=== PATIENT | male | born 1965 | race Hispanic/Latino ===

== ENCOUNTER 2018-06-10 13:00 | Inpatient (IN) | payer BC ==
[~2018-06-10] VITALS: Ht 167.6 cm; Wt 52.0 kg
[2018-06-10] VITALS (10 sets, daily range): BP systolic 98–151; BP diastolic 62–92
[2018-06-10 13:32] LABS: HEMATOCRIT 36.2 % (39.0-50.0); HEMOGLOBIN 12.9 g/dl (14.0-18.0); IMMATURE GRANULOCYTES 0.4 % (0.0-5.0); MEAN CELL VOLUME 84.6 fL CALC (80.0-100.0); MEAN CORPUSCULAR HGB 30.1 pG CALC (26.0-32.0); MEAN CORPUSCULAR HGB CONC 35.6 g/L CALC (32.0-36.0); NEUT# 9.15 thou/uL (1.82-7.42); RED BLOOD COUNT 4.28 mill/uL (4.70-6.10); RED CELL DISTRI WIDTH 11.9 % (11.5-15.5)
[2018-06-10 13:41] LABS: URINE BLOOD DIPSTICK SMALL (NEGATIVE); URINE COLOR YELLOW; URINE GLUCOSE - DIPSTICK >=1000 mg/dL (NEGATIVE); URINE KETONE 40 mg/dL (NEGATIVE); URINE LEUK ESTERASE NEGATIVE (NEGATIVE); URINE NITRITE - DIPSTICK NEGATIVE (Negative); URINE PH 5.5 (4.5-8.0); URINE PROTEIN - DIPSTICK 100 mg/dL (NEG-TRACE); URINE SPECIFIC GRAVITY 1.025; URINE UROBILINOGEN - DIPSTICK 0.2 E.U./dL (0.2)
[2018-06-10 13:48] LABS: ALBUMIN 3.7 g/dL (3.2-5.0); ALKALINE PHOSPHATASE 99 u/l (38-126); ANION GAP 26 (6-22 (CALC)); BILIRUBIN, TOTAL 0.8 mg/dL (0.0-1.4); BUN 25 mg/dL (9-20); BUN/CREATININE RATIO 26 (12-20 (CALC)); CARBON DIOXIDE 18 mmol/l (22-30); CHLORIDE 96 mmol/l (95-108); GFR > 60 ML/MIN (>=60 (CALC)); GFR FOR AFR.AMER. > 60 ML/MIN (>=60 (CALC)); LIPASE 15 u/l (23-300); POTASSIUM 4.7 mmol/l (3.5-5.1); SGOT/AST 23 u/l (17-59); SODIUM 134 mmol/l (137-146); TOTAL PROTEIN 6.8 g/dL (6.3-8.2)
[2018-06-10 13:52] LABS: URINE BILIRUBIN - DIPSTICK NEGATIVE (NEGATIVE); URINE CLARITY CLEAR; URINE WBC 0-2 WBC/hpf (0-5)
[2018-06-10 19:31] LABS: ANION GAP 13 (6-22 (CALC)); BUN 21 mg/dL (9-20); BUN/CREATININE RATIO 29 (12-20 (CALC)); CHLORIDE 104 mmol/l (95-108); CREATININE 0.7 mg/dL (0.7-1.3); GFR > 60 ML/MIN (>=60 (CALC)); GFR FOR AFR.AMER. > 60 ML/MIN (>=60 (CALC)); SODIUM 138 mmol/l (137-146)
[2018-06-10 19:32] LABS: CARBON DIOXIDE 25 mmol/l (22-30)
[2018-06-11] VITALS (12 sets, daily range): BP systolic 87–139; BP diastolic 53–89
[2018-06-11 06:02] LABS: HEMATOCRIT 33.8 % (39.0-50.0); HEMOGLOBIN 11.8 g/dl (14.0-18.0); IMMATURE GRANULOCYTES 0.1 % (0.0-5.0); MEAN CELL VOLUME 86.4 fL CALC (80.0-100.0); MEAN CORPUSCULAR HGB 30.2 pG CALC (26.0-32.0); MEAN CORPUSCULAR HGB CONC 34.9 g/L CALC (32.0-36.0); PLATELET COUNT 129 thou/uL (130-400); RED BLOOD COUNT 3.91 mill/uL (4.70-6.10); RED CELL DISTRI WIDTH 11.9 % (11.5-15.5)
[2018-06-11 06:17] LABS: ALKALINE PHOSPHATASE 76 u/l (38-126); BILIRUBIN, TOTAL 0.5 mg/dL (0.0-1.4); BUN 24 mg/dL (9-20); BUN/CREATININE RATIO 30 (12-20 (CALC)); CHLORIDE 105 mmol/l (95-108); CREATININE 0.8 mg/dL (0.7-1.3); GFR > 60 ML/MIN (>=60 (CALC)); GFR FOR AFR.AMER. > 60 ML/MIN (>=60 (CALC)); MAGNESIUM 1.9 mg/dL (1.6-2.3); POTASSIUM 4.4 mmol/l (3.5-5.1); SGOT/AST 15 u/l (17-59); SODIUM 137 mmol/l (137-146)
[2018-06-11 06:19] LABS: ANION GAP 23 (6-22 (CALC))
[2018-06-11 06:20] LABS: ALBUMIN 2.6 g/dL (3.2-5.0); CARBON DIOXIDE 13 mmol/l (22-30)
[2018-06-11 06:47] LABS: MANUAL DIFFERENTIAL YES
[2018-06-11 06:48] LABS: BAND 31 % (0-8); HYPOCHROMIA FEW; MICROCYTOSIS FEW
[2018-06-11 06:49] LABS: PLATELET ESTIMATE NORMAL
[2018-06-12 04:47] VITALS: BP 127/73
[2018-06-12 05:18] LABS: HEMOGLOBIN 11.8 g/dl (14.0-18.0); IMMATURE GRANULOCYTES 0.4 % (0.0-5.0); MEAN CELL VOLUME 85.9 fL CALC (80.0-100.0); MEAN CORPUSCULAR HGB 29.8 pG CALC (26.0-32.0); MEAN CORPUSCULAR HGB CONC 34.7 g/L CALC (32.0-36.0); NEUT# 6.16 thou/uL (1.82-7.42); RED BLOOD COUNT 3.96 mill/uL (4.70-6.10); RED CELL DISTRI WIDTH 11.7 % (11.5-15.5)
[2018-06-12 05:34] LABS: ALBUMIN 2.4 g/dL (3.2-5.0); ALKALINE PHOSPHATASE 82 u/l (38-126); ANION GAP 17 (6-22 (CALC)); BILIRUBIN, TOTAL 0.5 mg/dL (0.0-1.4); BUN 17 mg/dL (9-20); BUN/CREATININE RATIO 32 (12-20 (CALC)); CHLORIDE 100 mmol/l (95-108); CREATININE 0.5 mg/dL (0.7-1.3); GFR > 60 ML/MIN (>=60 (CALC)); GFR FOR AFR.AMER. > 60 ML/MIN (>=60 (CALC)); MAGNESIUM 1.8 mg/dL (1.6-2.3); POTASSIUM 3.8 mmol/l (3.5-5.1); SGOT/AST 19 u/l (17-59); SODIUM 135 mmol/l (137-146); TOTAL PROTEIN 4.7 g/dL (6.3-8.2)
[2018-06-12 05:40] LABS: CARBON DIOXIDE 22 mmol/l (22-30)
[2018-06-12 07:44] VITALS: BP 137/87
[2018-06-12 11:35] VITALS: BP 144/91
[2018-06-12 15:44] VITALS: BP 145/88
[2018-06-12 20:06] VITALS: BP 117/62
[2018-06-13 04:47] VITALS: BP 139/78
[2018-06-13 06:44] LABS: ALBUMIN 2.4 g/dL (3.2-5.0); BUN 17 mg/dL (9-20); CARBON DIOXIDE 18 mmol/l (22-30); CHLORIDE 100 mmol/l (95-108); CREATININE 0.6 mg/dL (0.7-1.3); GFR > 60 ML/MIN (>=60 (CALC)); GFR FOR AFR.AMER. > 60 ML/MIN (>=60 (CALC)); POTASSIUM 4.1 mmol/l (3.5-5.1); SODIUM 135 mmol/l (137-146)
[2018-06-13 07:39] VITALS: BP 117/66
[2018-06-13 15:20] VITALS: BP 132/75
[2018-06-13 20:00] VITALS: BP 118/70
[2018-06-14 00:28] VITALS: BP 123/63
[2018-06-14 05:03] VITALS: BP 139/75
[2018-06-14 07:45] VITALS: BP 170/99
[2018-06-14 13:42] LABS: HEMATOCRIT 32.6 % (39.0-50.0); HEMOGLOBIN 11.8 g/dl (14.0-18.0); IMMATURE GRANULOCYTES 0.7 % (0.0-5.0); MEAN CELL VOLUME 83.4 fL CALC (80.0-100.0); MEAN CORPUSCULAR HGB 30.2 pG CALC (26.0-32.0); MEAN CORPUSCULAR HGB CONC 36.2 g/L CALC (32.0-36.0); NEUT# 9.12 thou/uL (1.82-7.42); RED BLOOD COUNT 3.91 mill/uL (4.70-6.10); RED CELL DISTRI WIDTH 11.9 % (11.5-15.5)
[2018-06-14 15:30] VITALS: BP 151/84
[2018-06-14 20:00] VITALS: BP 149/83
[2018-06-15 05:26] VITALS: BP 160/90
[2018-06-15 07:30] VITALS: BP 121/72
[2018-06-15 16:58] VITALS: BP 136/80
[2018-06-15 20:00] VITALS: BP 148/82
[2018-06-16 05:39] VITALS: BP 150/86
[2018-06-16 06:10] LABS: HEMATOCRIT 35.6 % (39.0-50.0); HEMOGLOBIN 12.8 g/dl (14.0-18.0); IMMATURE GRANULOCYTES 0.8 % (0.0-5.0); MEAN CELL VOLUME 83.6 fL CALC (80.0-100.0); RED BLOOD COUNT 4.26 mill/uL (4.70-6.10); RED CELL DISTRI WIDTH 11.8 % (11.5-15.5)
[2018-06-16 06:14] LABS: ALBUMIN 2.5 g/dL (3.2-5.0); ALKALINE PHOSPHATASE 120 u/l (38-126); BILIRUBIN, TOTAL 0.5 mg/dL (0.0-1.4); BUN 16 mg/dL (9-20); BUN/CREATININE RATIO 29 (12-20 (CALC)); CHLORIDE 97 mmol/l (95-108); CREATININE 0.6 mg/dL (0.7-1.3); GFR > 60 ML/MIN (>=60 (CALC)); GFR FOR AFR.AMER. > 60 ML/MIN (>=60 (CALC)); MAGNESIUM 2.2 mg/dL (1.6-2.3); POTASSIUM 3.8 mmol/l (3.5-5.1); SODIUM 136 mmol/l (137-146); TOTAL PROTEIN 5.2 g/dL (6.3-8.2)
[2018-06-16 06:21] LABS: ANION GAP 17 (6-22 (CALC)); CARBON DIOXIDE 26 mmol/l (22-30); SGOT/AST 45 u/l (17-59)
[2018-06-16 06:57] LABS: MANUAL DIFFERENTIAL YES; PLATELET COUNT 262 thou/uL (130-400)
[2018-06-16 08:15] VITALS: BP 127/82
[2018-06-16 11:05] VITALS: BP 125/70
[2018-06-16] MEDS ORDERED: DOXYCYCL HYC100 MG PO (13:35)
[2018-06-16] MEDS ORDERED: AMARYL2 MG PO (13:37)
[2018-06-16] MEDS ORDERED: LISINOPRIL10 MG PO (13:37)
[2018-06-16] MEDS ORDERED: JANUVIA50 MG PO (13:38)
== END 2018-06-16 15:15 | disposition home or self-care (01) | DRG 193 ==
LOC: ED 13:00 → ED-I 14:54 → ED 15:28 → ICU 15:29 → MS2 06-11 18:12
PROVIDERS: Family Medicine; Internal Medicine Nephrology; ADMIT Internal Medicine Nephrology; ATTEND Internal Medicine Nephrology
DX: J10.1 Influenza due to other identified influenza virus with other respiratory manifestations (principal); E11.10 Type 2 diabetes mellitus with ketoacidosis without coma; E87.1 Hypo-osmolality and hyponatremia; E11.40 Type 2 diabetes mellitus with diabetic neuropathy, unspecified; E11.22 Type 2 diabetes mellitus with diabetic chronic kidney disease; I12.9 Hypertensive chronic kidney disease with stage 1 through stage 4 chronic kidney disease, or unspecified chronic kidney disease; N18.1 Chronic kidney disease, stage 1; D63.1 Anemia in chronic kidney disease; S80.862A Insect bite (nonvenomous), left lower leg, initial encounter; S80.861A Insect bite (nonvenomous), right lower leg, initial encounter; W57.XXXA Bitten or stung by nonvenomous insect and other nonvenomous arthropods, initial encounter; Z79.84 Long term (current) use of oral hypoglycemic drugs
CPT/HCPCS: J1650

== ENCOUNTER 2018-06-20 07:10 | Inpatient (IN) | payer BC ==
[2018-06-20] VITALS (10 sets, daily range): BP systolic 91–132; BP diastolic 49–82
[~2018-06-20] VITALS: Ht 167.6 cm; Wt 52.0 kg
[~2018-06-20 07:10] MED LIST: AMARYL2 MG PO; DOXYCYCL HYC100 MG PO; JANUVIA50 MG PO; LISINOPRIL10 MG PO
[2018-06-20 07:55] LABS: HEMATOCRIT 37.1 % (39.0-50.0); HEMOGLOBIN 12.9 g/dl (14.0-18.0); IMMATURE GRANULOCYTES 1.1 % (0.0-5.0); MEAN CELL VOLUME 85.7 fL CALC (80.0-100.0); MEAN CORPUSCULAR HGB 29.8 pG CALC (26.0-32.0); MEAN CORPUSCULAR HGB CONC 34.8 g/L CALC (32.0-36.0); RED BLOOD COUNT 4.33 mill/uL (4.70-6.10); RED CELL DISTRI WIDTH 12.1 % (11.5-15.5)
[2018-06-20 08:14] LABS: ALBUMIN 2.8 g/dL (3.2-5.0); ALKALINE PHOSPHATASE 154 u/l (38-126); BILIRUBIN, TOTAL 0.3 mg/dL (0.0-1.4); BUN 15 mg/dL (9-20); BUN/CREATININE RATIO 20 (12-20 (CALC)); CHLORIDE 107 mmol/l (95-108); CREATININE 0.7 mg/dL (0.7-1.3); GFR > 60 ML/MIN (>=60 (CALC)); GFR FOR AFR.AMER. > 60 ML/MIN (>=60 (CALC)); POTASSIUM 3.6 mmol/l (3.5-5.1); SGOT/AST 15 u/l (17-59); SODIUM 140 mmol/l (137-146)
[2018-06-20 08:16] LABS: ANION GAP 26 (6-22 (CALC)); CARBON DIOXIDE 11 mmol/l (22-30); TOTAL PROTEIN 6.5 g/dL (6.3-8.2)
[2018-06-21] VITALS (13 sets, daily range): BP systolic 94–148; BP diastolic 53–92
[2018-06-21 05:35] LABS: IMMATURE GRANULOCYTES 1.1 % (0.0-5.0); MEAN CELL VOLUME 81.8 fL CALC (80.0-100.0); MEAN CORPUSCULAR HGB 29.8 pG CALC (26.0-32.0); MEAN CORPUSCULAR HGB CONC 36.5 g/L CALC (32.0-36.0); NEUT# 14.4 thou/uL (1.82-7.42); RED BLOOD COUNT 3.52 mill/uL (4.70-6.10); RED CELL DISTRI WIDTH 11.9 % (11.5-15.5)
[2018-06-21 05:45] LABS: HEMATOCRIT 28.8 % (39.0-50.0); HEMOGLOBIN 10.5 g/dl (14.0-18.0)
[2018-06-21 05:48] LABS: ALKALINE PHOSPHATASE 113 u/l (38-126); BILIRUBIN, TOTAL 0.3 mg/dL (0.0-1.4); BUN 9 mg/dL (9-20); BUN/CREATININE RATIO 19 (12-20 (CALC)); CHLORIDE 111 mmol/l (95-108); CREATININE 0.5 mg/dL (0.7-1.3); GFR > 60 ML/MIN (>=60 (CALC)); GFR FOR AFR.AMER. > 60 ML/MIN (>=60 (CALC)); MAGNESIUM 1.7 mg/dL (1.6-2.3); SGOT/AST 11 u/l (17-59); SODIUM 140 mmol/l (137-146)
[2018-06-21 05:49] LABS: ALBUMIN 1.9 g/dL (3.2-5.0); ANION GAP 17 (6-22 (CALC)); CARBON DIOXIDE 15 mmol/l (22-30); POTASSIUM 2.7 mmol/l (3.5-5.1); TOTAL PROTEIN 4.5 g/dL (6.3-8.2)
[2018-06-21 10:30] LABS: URINE BILIRUBIN - DIPSTICK NEGATIVE (NEGATIVE); URINE BLOOD DIPSTICK TRACE-LYSED (NEGATIVE); URINE COLOR YELLOW; URINE GLUCOSE - DIPSTICK 500 mg/dL (NEGATIVE); URINE KETONE >=80 mg/dL (NEGATIVE); URINE LEUK ESTERASE NEGATIVE (Negative); URINE NITRITE - DIPSTICK NEGATIVE (Negative); URINE PROTEIN - DIPSTICK 100 mg/dL (NEG-TRACE); URINE SPECIFIC GRAVITY >=1.030; URINE UROBILINOGEN - DIPSTICK 0.2 E.U./dL (0.2)
[2018-06-21 10:37] LABS: URINE CLARITY SL CLOUDY; URINE EPITHELIAL CELLS FEW EPI/hpf (0-FEW); URINE MUCUS MODERATE hpf (NONE-FEW); URINE RBC 0-2 RBC/hpf (0-5)
[2018-06-22] VITALS (11 sets, daily range): BP systolic 109–160; BP diastolic 67–92
[2018-06-22 05:49] LABS: HEMOGLOBIN 11.3 g/dl (14.0-18.0); MEAN CELL VOLUME 81.4 fL CALC (80.0-100.0); MEAN CORPUSCULAR HGB 29.7 pG CALC (26.0-32.0); MEAN CORPUSCULAR HGB CONC 36.5 g/L CALC (32.0-36.0); NEUT# 13.03 thou/uL (1.82-7.42); RED BLOOD COUNT 3.81 mill/uL (4.70-6.10); RED CELL DISTRI WIDTH 12.1 % (11.5-15.5)
[2018-06-22 05:51] LABS: ALBUMIN 2.1 g/dL (3.2-5.0); ALKALINE PHOSPHATASE 122 u/l (38-126); ANION GAP 20 (6-22 (CALC)); BILIRUBIN, TOTAL 0.3 mg/dL (0.0-1.4); BUN 11 mg/dL (9-20); BUN/CREATININE RATIO 22 (12-20 (CALC)); CARBON DIOXIDE 16 mmol/l (22-30); CHLORIDE 110 mmol/l (95-108); CREATININE 0.5 mg/dL (0.7-1.3); GFR > 60 ML/MIN (>=60 (CALC)); GFR FOR AFR.AMER. > 60 ML/MIN (>=60 (CALC)); MAGNESIUM 1.9 mg/dL (1.6-2.3); POTASSIUM 2.9 mmol/l (3.5-5.1); SGOT/AST 11 u/l (17-59); SODIUM 143 mmol/l (137-146); TOTAL PROTEIN 4.7 g/dL (6.3-8.2)
[2018-06-23] VITALS (10 sets, daily range): BP systolic 117–153; BP diastolic 70–91
[2018-06-23 05:35] LABS: HEMATOCRIT 27.7 % (39.0-50.0); HEMOGLOBIN 10.3 g/dl (14.0-18.0); IMMATURE GRANULOCYTES 0.9 % (0.0-5.0); MEAN CELL VOLUME 80.3 fL CALC (80.0-100.0); MEAN CORPUSCULAR HGB 29.9 pG CALC (26.0-32.0); MEAN CORPUSCULAR HGB CONC 37.2 g/L CALC (32.0-36.0); NEUT# 13.62 thou/uL (1.82-7.42); RED BLOOD COUNT 3.45 mill/uL (4.70-6.10); RED CELL DISTRI WIDTH 12.3 % (11.5-15.5)
[2018-06-23 05:58] LABS: ALKALINE PHOSPHATASE 115 u/l (38-126); ANION GAP 16 (6-22 (CALC)); BILIRUBIN, TOTAL 0.3 mg/dL (0.0-1.4); BUN 12 mg/dL (9-20); BUN/CREATININE RATIO 27 (12-20 (CALC)); CARBON DIOXIDE 18 mmol/l (22-30); CHLORIDE 106 mmol/l (95-108); CREATININE 0.4 mg/dL (0.7-1.3); GFR > 60 ML/MIN (>=60 (CALC)); GFR FOR AFR.AMER. > 60 ML/MIN (>=60 (CALC)); MAGNESIUM 1.8 mg/dL (1.6-2.3); POTASSIUM 2.9 mmol/l (3.5-5.1); SGOT/AST 10 u/l (17-59); SODIUM 138 mmol/l (137-146); TOTAL PROTEIN 4.4 g/dL (6.3-8.2)
[2018-06-24 04:10] VITALS: BP 113/73
[2018-06-24 06:01] LABS: HEMATOCRIT 28.2 % (39.0-50.0); HEMOGLOBIN 10.5 g/dl (14.0-18.0); IMMATURE GRANULOCYTES 1.3 % (0.0-5.0); MEAN CELL VOLUME 80.8 fL CALC (80.0-100.0); MEAN CORPUSCULAR HGB 30.1 pG CALC (26.0-32.0); MEAN CORPUSCULAR HGB CONC 37.2 g/L CALC (32.0-36.0); NEUT# 13.25 thou/uL (1.82-7.42); RED BLOOD COUNT 3.49 mill/uL (4.70-6.10); RED CELL DISTRI WIDTH 12.5 % (11.5-15.5)
[2018-06-24 06:13] LABS: ALKALINE PHOSPHATASE 131 u/l (38-126); ANION GAP 14 (6-22 (CALC)); BILIRUBIN, TOTAL 0.5 mg/dL (0.0-1.4); BUN 14 mg/dL (9-20); BUN/CREATININE RATIO 29 (12-20 (CALC)); CARBON DIOXIDE 23 mmol/l (22-30); CHLORIDE 104 mmol/l (95-108); CREATININE 0.5 mg/dL (0.7-1.3); GFR > 60 ML/MIN (>=60 (CALC)); GFR FOR AFR.AMER. > 60 ML/MIN (>=60 (CALC)); MAGNESIUM 1.8 mg/dL (1.6-2.3); POTASSIUM 3.2 mmol/l (3.5-5.1); SODIUM 138 mmol/l (137-146); TOTAL PROTEIN 4.5 g/dL (6.3-8.2)
[2018-06-24 06:25] LABS: SGOT/AST 18 u/l (17-59)
[2018-06-24 08:00] VITALS: BP 93/70
[2018-06-24 15:31] VITALS: BP 145/87
[2018-06-24 18:48] VITALS: BP 137/85
[2018-06-25 04:21] VITALS: BP 121/69
[2018-06-25 05:43] LABS: ALBUMIN 1.7 g/dL (3.2-5.0); BUN 11 mg/dL (9-20); CHLORIDE 104 mmol/l (95-108); CREATININE 0.3 mg/dL (0.7-1.3); GFR > 60 ML/MIN (>=60 (CALC)); GFR FOR AFR.AMER. > 60 ML/MIN (>=60 (CALC)); MAGNESIUM 1.5 mg/dL (1.6-2.3); POTASSIUM 2.7 mmol/l (3.5-5.1); SODIUM 137 mmol/l (137-146)
[2018-06-25 05:46] LABS: CARBON DIOXIDE 30 mmol/l (22-30)
[2018-06-25 07:31] VITALS: BP 121/72
[2018-06-25 16:00] VITALS: BP 124/81
[2018-06-25 19:36] VITALS: BP 112/59
[2018-06-26 04:00] VITALS: BP 127/81
[2018-06-26 06:48] LABS: ANION GAP 13 (6-22 (CALC)); BUN 13 mg/dL (9-20); BUN/CREATININE RATIO 32 (12-20 (CALC)); CARBON DIOXIDE 31 mmol/l (22-30); CHLORIDE 98 mmol/l (95-108); CREATININE 0.4 mg/dL (0.7-1.3); GFR > 60 ML/MIN (>=60 (CALC)); GFR FOR AFR.AMER. > 60 ML/MIN (>=60 (CALC)); POTASSIUM 3.2 mmol/l (3.5-5.1); SODIUM 138 mmol/l (137-146)
[2018-06-26 07:39] VITALS: BP 92/65
[2018-06-26 16:00] VITALS: BP 109/72
[2018-06-26 19:34] VITALS: BP 154/91
[2018-06-27 04:00] VITALS: BP 125/77
[2018-06-27 07:01] VITALS: BP 111/71
[2018-06-27 15:15] VITALS: BP 117/79
[2018-06-27 19:00] VITALS: BP 135/82
[2018-06-28 03:40] VITALS: BP 116/72
[2018-06-28 07:00] VITALS: BP 116/70
[2018-06-28 10:27] LABS: HEMATOCRIT 30.7 % (39.0-50.0); HEMOGLOBIN 10.8 g/dl (14.0-18.0); IMMATURE GRANULOCYTES 0.7 % (0.0-5.0); MEAN CELL VOLUME 84.8 fL CALC (80.0-100.0); MEAN CORPUSCULAR HGB 29.8 pG CALC (26.0-32.0); MEAN CORPUSCULAR HGB CONC 35.2 g/L CALC (32.0-36.0); NEUT# 9.23 thou/uL (1.82-7.42); RED BLOOD COUNT 3.62 mill/uL (4.70-6.10); RED CELL DISTRI WIDTH 12.5 % (11.5-15.5)
[2018-06-28 10:35] LABS: BUN 17 mg/dL (9-20); BUN/CREATININE RATIO 44 (12-20 (CALC)); CARBON DIOXIDE 30 mmol/l (22-30); CHLORIDE 99 mmol/l (95-108); CREATININE 0.4 mg/dL (0.7-1.3); GFR > 60 ML/MIN (>=60 (CALC)); GFR FOR AFR.AMER. > 60 ML/MIN (>=60 (CALC)); SODIUM 135 mmol/l (137-146)
[2018-06-28 10:37] LABS: ANION GAP 10 (6-22 (CALC)); POTASSIUM 4.1 mmol/l (3.5-5.1)
[2018-06-28 15:00] VITALS: BP 125/83
[2018-06-28 19:10] VITALS: BP 117/78
== END 2018-06-28 22:35 | disposition short-term general hospital (02) | DRG 871 ==
LOC: ED 07:10 → ED-I 08:52 → ED 09:40 → ICU 09:41 → MS2 09:41 → ICU 12:00 → MS2 06-23 15:52
PROVIDERS: Emergency Medicine; Internal Medicine; Internal Medicine Nephrology; ADMIT Internal Medicine Nephrology; ATTEND Internal Medicine Nephrology
PROC: 02HV33Z Insertion of Infusion Device into Superior Vena Cava, Percutaneous Approach (ICD-10-PCS; principal; 2018-06-21)
PROC: B518ZZA Fluoroscopy of Superior Vena Cava, Guidance (ICD-10-PCS; 2018-06-21)
DX: A41.9 Sepsis, unspecified organism (principal); J18.9 Pneumonia, unspecified organism; E87.2 Acidosis; R65.20 Severe sepsis without septic shock; R68.0 Hypothermia, not associated with low environmental temperature; E11.65 Type 2 diabetes mellitus with hyperglycemia; E11.22 Type 2 diabetes mellitus with diabetic chronic kidney disease; E87.6 Hypokalemia; I12.9 Hypertensive chronic kidney disease with stage 1 through stage 4 chronic kidney disease, or unspecified chronic kidney disease; N18.1 Chronic kidney disease, stage 1; D63.1 Anemia in chronic kidney disease; E83.39 Other disorders of phosphorus metabolism; E83.42 Hypomagnesemia; Y95 Nosocomial condition
CPT/HCPCS: J3370; J3475

== ENCOUNTER 2019-11-29 09:28 | Observation (INO) | payer BC ==
[~2019-11-29] VITALS: Ht 160 cm; Wt 61.0 kg
--- NOTE | 2019-11-29 09:30 | NUR ---
PT AMB TO ROOM WITH STEADY GAIT FOR BEDSIDE TRAIGE
[2019-11-29 09:49] LABS: HEMATOCRIT 33.1 % (39.0-50.0); HEMOGLOBIN 11.3 g/dl (14.0-18.0); IMMATURE GRANULOCYTES 0.2 % (0.0-5.0); MEAN CELL VOLUME 82.3 fL CALC (80.0-100.0); MEAN CORPUSCULAR HGB 28.1 pG CALC (26.0-32.0); MEAN CORPUSCULAR HGB CONC 34.1 g/dL CAL (32.0-36.0); NEUT# 4.43 thou/uL (1.82-7.42); RED BLOOD COUNT 4.02 mill/uL (4.70-6.10); RED CELL DISTRI WIDTH 13.7 % (11.5-15.5)
--- NOTE | 2019-11-29 09:57 | NUR ---
PT MEDICATED PER MAR FOR HTN; MONITORING DEVICES IN PLACE; ADVISED OF CONTINUED WAIT TIME; WILL CONTINUE TO MONITOR
[2019-11-29 10:08] LABS: ALKALINE PHOSPHATASE 81 u/l (38-126); BILIRUBIN, TOTAL 0.3 mg/dL (0.0-1.4); BUN 49 mg/dL (9-20); CHLORIDE 108 mmol/l (95-108); LIPASE 78 u/l (23-300); SGOT/AST 30 u/l (17-59); SODIUM 135 mmol/l (137-146)
[2019-11-29 10:10] LABS: BUN/CREATININE RATIO 16 (12-20 (CALC)); GFR 22 ML/MIN (>=60 (CALC)); GFR FOR AFR.AMER. 27 ML/MIN (>=60 (CALC))
[2019-11-29 10:11] LABS: ANION GAP 12 (6-22 (CALC)); CARBON DIOXIDE 20 mmol/l (22-30); POTASSIUM 5.3 mmol/l (3.5-5.1); TOTAL PROTEIN 7.3 g/dL (6.3-8.2)
--- NOTE | 2019-11-29 10:59 | NUR ---
PT TO RADIOLOGY IN STABLE CONDITION AT THIS TIME
--- NOTE | 2019-11-29 11:48 | NUR ---
DR PINEDO AT BEDSIDE TO DISCUSS POC AND FINDINGS
[2019-11-29] MEDS ORDERED: METFORMIN HYDR850 MG PO (12:29)
[2019-11-29] MEDS ORDERED: LISINOPRIL30 MG PO (12:30)
[2019-11-29] MEDS ORDERED: GLIMEPIRIDE2 MG PO (12:30)
--- NOTE | 2019-11-29 12:46 | NUR ---
PT RESTING ON STRETCHER; NO S/S OF DISTRESS NOTED; ADVISED OF CONTINUED WAIT TIME FOR ADMISSION; WILL CONTINUE TO MONITOR
--- NOTE | 2019-11-29 12:47 | NUR ---
PT ARRVIED TO MS VIA STRETCHER ACCOMPANIED BY [employer]. PT A&O X3. STEADY GAIT OBSERVED. PT DENIES ANY CP AT THIS TIME, STATES THAT HIS PAIN ONLY OCCURS WHEN HE COUGHS. TREMORS NOTED TO RT ARM AND SLIGHTLY GENERALIZED THROUGHOUT HIS BODY. PER PT THIS IS NORMAL FOR HIM AND HE DOES HAVE A PAST HX OF ETOH USE ALONG WITH MATERNAL HX OF PARKINSONS. STATES THAT HIS COUGH HAS BEEN ON AND OFF DUE TO THE CHEMICALS THAT HE IS EXPOSED TO DURING WORK. ADMITS TO BE NON COMPLIANT WITH HIS BP MEDICATIONS. DENIES ANY SOB AND HAS BEEN AFEBRILE. TRACE SWELLING NOTED TO BILAT ANKLES. PT REFUSED [facility] AT THIS TIME. ORIENTED PT TO ROOM. ASSESSMENT COMPLETED. DISCUSSED POC. CALL LIGHT IN REACH. CONTINUE TO MONITOR
--- NOTE | 2019-11-29 12:56 | NUR ---
Admission Note Report Given to: MICHAEL RODRIGUES Transported by: Wheelchair X Stretcher Transported with: X Nurse Transporter X Patent IV O2 X Die Cast Patternmaker Location: ICU X [facility]
[2019-11-29 13:05] VITALS: BP 173/86
[2019-11-29 14:31] VITALS: BP 188/94
--- NOTE | 2019-11-29 14:31 | NUR ---
BP STILL ELEVATED 188/94 HR 79. NOTIFIED LIDA RN TO ADMINISTER APRESOLINE IV
--- NOTE | 2019-11-29 14:35 | NUR ---
APRESOLINE IV ADMINISTERED BY LIDA PHIPPS. WILL REASSESS
[2019-11-29 16:48] VITALS: BP 165/85
--- NOTE | 2019-11-29 17:00 | NUR ---
NOTIFIED JOSE COOK OF PTS BP STILL BEING ELEVATED. 166/85. NORVASC TO BE GIVEN
[2019-11-29 19:36] VITALS: BP 152/82
--- NOTE | 2019-11-29 19:36 | NUR ---
ASSESSMENT COMPLETED. NO DISTRESS NOTED; DENIES NEEDS/PAIN. FRESH WATER PROVIDED. PT. REPORTS DRY COUGH, NONE NOTED AT THIS TIME. EDCUATED ON POC. ENCOURAGED TO CALL FOR ANY NEEDS. CALL LIGHT IS IN REACH.
--- NOTE | 2019-11-29 21:45 | NUR ---
RESTING IN BED WITH NO DISTRESS NOTED; DENIES NEEDS/PAIN. ENCOURAGED TO CALL FOR ANY NEEDS. CALL LIGHT IS IN REACH.
[2019-11-30] VITALS (8 sets, daily range): BP systolic 152–169; BP diastolic 75–88
--- NOTE | 2019-11-30 00:30 | NUR ---
RESTING IN BED WITH NO DISTRESS NOTED; DENIES NEEDS/PAIN. ENCOURAGED TO CALL FOR ANY NEEDS.
[2019-11-30] MEDS ORDERED: FAMOTIDINE20 M3 PO (02:46)
[2019-11-30] MEDS ORDERED: AMOXICILLIN875 MG PO (02:47)
--- NOTE | 2019-11-30 05:15 | NUR ---
RESTING IN BED WITH EYES CLOSED; RESP. EVEN AND UNLABORED. CALL LIGHT IS IN REACH.
[2019-11-30 06:01] LABS: IMMATURE GRANULOCYTES 0.3 % (0.0-5.0); MEAN CELL VOLUME 84.4 fL CALC (80.0-100.0); MEAN CORPUSCULAR HGB 28.3 pG CALC (26.0-32.0); MEAN CORPUSCULAR HGB CONC 33.6 g/dL CAL (32.0-36.0); NEUT# 3.23 thou/uL (1.82-7.42); RED BLOOD COUNT 3.14 mill/uL (4.70-6.10); RED CELL DISTRI WIDTH 14.4 % (11.5-15.5)
[2019-11-30 06:21] LABS: CREATININE 2.7 mg/dL (0.7-1.3); POTASSIUM 4.6 mmol/l (3.5-5.1)
[2019-11-30 06:22] LABS: BILIRUBIN, TOTAL 0.1 mg/dL (0.0-1.4); TOTAL PROTEIN 5.1 g/dL (6.3-8.2)
[2019-11-30 06:23] LABS: ALBUMIN 2.6 g/dL (3.2-5.0)
[2019-11-30 06:27] LABS: C-REACTIVE PROTEIN < 0.5 mg/dL (0-0.9); CALCULATED LDLCHOLESTEROL 123 mg/dL (62-129 (CALC)); CHOLESTEROL HDL RATIO 4.9 (<4.4 (CALC)); HDL CHOLESTEROL 42 mg/dL (>=40); TOTAL CHOLESTEROL 204 mg/dl (0-199); TOTAL TRIGLYCERIDES 193 mg/dl (30-149); VLDL CHOLESTROL 39 mg/dl (8-62 (CALC))
[2019-11-30 06:34] LABS: HEMATOCRIT 26.5 % (39.0-50.0); HEMOGLOBIN 8.9 g/dl (14.0-18.0)
--- NOTE | 2019-11-30 07:41 | NUR ---
PT SITTING ON THE SIDE OF THE BED. A&O X3. NO DISTRESS NOTED. PT DENIES ANY PAIN AT THIS TIME. RESULTS OF NEGATIVE COVID RESULT GIVEN TO PT. DISCUSSED POC. CALL LIGHT IN REACH. CONTINUE TO MONITOR.
--- NOTE | 2019-11-30 14:20 | NUR ---
PT SITTING IN BED. NO DISTRESS NOTED. ENCOURAGED PT TO DRINK FLUIDS. PT VERBALIZED UNDERSTANDING. NO OTHER NEEDS AT THIS TIME. CALL LIGHT IN REACH. CONTINUE TO MONITOR
--- NOTE | 2019-11-30 18:28 | NUR ---
PT SITTING IN BED. NO DISTRESS NOTED. CALL LIGHT IN REACH. CONTINUE TO MONITOR
--- NOTE | 2019-11-30 19:51 | NUR ---
ASSESSMENT COMPLETED. NO DISTRESS NOTED; C/O NON-PRODUCTIVE DRY COUGH AND GIVEN WARM TEA WITH HONEY AND LEMON. B/P ELEVATED AND MEDICATED WITH ORDERED PM NORVASC; WILL CONTINUE TO MONITOR. IV SITE PATENT AND ORDERED IVF WELL. ENCOURAGED TO CALL FOR ANY NEEDS. ERASTO LIGHT IS IN REACH.
--- NOTE | 2019-11-30 22:25 | NUR ---
PT. RESTING IN BED WITH EYES CLOSED; RESP. EVEN AND UNLABORED. CALL LIGHT IS IN REACH.
--- NOTE | 2019-11-30 23:15 | NUR ---
PT. RESTING IN BED WITH NO DISTRESS NOTED; DENIES NEEDS/PAIN. ENCOURAGED TO CALL FOR ANY NEEDS. VS OBTAINED.
--- NOTE | 2019-12-01 02:05 | NUR ---
RESTING IN BED WITH EYES CLOSED. NO DISTRESS NOTED. CALL LIGHT IS IN REACH.
[2019-12-01 03:30] VITALS: BP 138/75
--- NOTE | 2019-12-01 04:51 | NUR ---
RESTING IN BED WITH NO DISTRESS NOTED; DENIES NEEDS. CALL LIGHT IS IN REACH.
[2019-12-01 05:34] LABS: HEMATOCRIT 27.7 % (39.0-50.0); MEAN CORPUSCULAR HGB CONC 32.5 g/dL CAL (32.0-36.0); RED BLOOD COUNT 3.22 mill/uL (4.70-6.10)
[2019-12-01 05:57] LABS: ALBUMIN 2.5 g/dL (3.2-5.0); CREATININE 2.6 mg/dL (0.7-1.3); POTASSIUM 4.6 mmol/l (3.5-5.1); TOTAL PROTEIN 4.8 g/dL (6.3-8.2)
[2019-12-01 05:59] LABS: BILIRUBIN, TOTAL 0.2 mg/dL (0.0-1.4)
[2019-12-01 07:30] VITALS: BP 159/84
--- NOTE | 2019-12-01 07:30 | NUR ---
PT SITTING ON THE SIDE OF THE BED. A&O X3. NO DISTRESS NOTED. PT DENIES FEELING ANY PAIN AT THIS TIME, BUT STILL REPORTS SLIGHT PAIN IN THE UPPER SIDE OF THE RT CHEST WHEN HE COUGHS. NO OTHER NEEDS AT THIS TIME. ASSESSMENT COMPLETED. DISCUSSED POC. CALL LIGHT IN REACH. CONTINUE TO MONITOR.
[2019-12-01 10:35] VITALS: BP 146/78
[2019-12-01] MEDS ORDERED: AMLODIPINE BESYL5 MG PO (12:46)
--- NOTE | 2019-12-01 16:40 | NUR ---
D/C INSTRUCTIONS GIVEN TO PT. IV INTACT UPON REMOVAL.
--- NOTE | 2019-12-01 16:52 | NUR ---
Discharge instructions given. Patient verbalizes understanding of same. Discharged in stable condition via Wheelchair to Home with staff. All belongings sent with pt.
== END 2019-12-01 16:51 | disposition home or self-care (01) | DRG 313 ==
LOC: ED 09:28 → ED-I 11:30 → ED 12:00 → ED-I 12:09 → MS2 12:09
PROVIDERS: Family Medicine; Nurse Practitioner Family; ADMIT Internal Medicine; ATTEND Internal Medicine
DX: R07.9 Chest pain, unspecified (principal); N17.9 Acute kidney failure, unspecified; E11.9 Type 2 diabetes mellitus without complications; I10 Essential (primary) hypertension; G25.0 Essential tremor; T50.916A Underdosing of multiple unspecified drugs, medicaments and biological substances, initial encounter; Z91.128 Patient's intentional underdosing of medication regimen for other reason; Z87.891 Personal history of nicotine dependence; Z79.84 Long term (current) use of oral hypoglycemic drugs; Z20.828 Contact with and (suspected) exposure to other viral communicable diseases
CPT/HCPCS: G0378; Q9967

== ENCOUNTER 2020-06-24 17:35 | Inpatient (IN) | payer BC ==
[~2020-06-24] VITALS: Ht 160 cm; Wt 71.4 kg
[~2020-06-24 17:35] MED LIST changes: +AMLODIPINE BESYL5 MG PO; +AMOXICILLIN875 MG PO; +FAMOTIDINE20 M3 PO; +GLIMEPIRIDE2 MG PO; +LISINOPRIL30 MG PO; +METFORMIN HYDR850 MG PO
--- NOTE | 2020-06-24 18:00 | NUR ---
PT TRIAGED AND PLACED BACK IN WAITING AREA RELATED TO BUSY ER AND NO AVIALABLE ROOMS. PT INSTRUCTED TO NOTIFY STAFF OF ANY CHANGES OR WORSENING IN CONDITION. PT VERBALIZES UNDERSTANDING.
--- NOTE | 2020-06-24 19:10 | NUR ---
PT TO ROOM # 10
[2020-06-24] MEDS ORDERED: LOSARTAN POTASS25 MG PO (19:33)
[2020-06-24] MEDS ORDERED: FAMOTIDINE20 M1 PO (19:34)
[2020-06-24] MEDS ORDERED: HYDRALAZINE50 MG PO (19:35)
--- NOTE | 2020-06-24 19:43 | NUR ---
PT DOWN TO RADIOLOGY
[2020-06-24 20:00] LABS: HEMATOCRIT 29.7 % (39.0-50.0); HEMOGLOBIN 9.8 g/dl (14.0-18.0); IMMATURE GRANULOCYTES 0.3 % (0.0-5.0); MEAN CELL VOLUME 88.1 fL CALC (80.0-100.0); MEAN CORPUSCULAR HGB 29.1 pG CALC (26.0-32.0); NEUT# 3.12 thou/uL (1.82-7.42); RED BLOOD COUNT 3.37 mill/uL (4.70-6.10); RED CELL DISTRI WIDTH 13.9 % (11.5-15.5)
[2020-06-24 20:19] LABS: ALBUMIN 3.7 g/dL (3.2-5.0); ALKALINE PHOSPHATASE 75 u/l (38-126); BUN 76 mg/dL (9-20); CARBON DIOXIDE 19 mmol/l (22-30); CHLORIDE 115 mmol/l (95-108); SGOT/AST 21 u/l (17-59); SODIUM 141 mmol/l (137-146); TOTAL PROTEIN 6.7 g/dL (6.3-8.2)
[2020-06-24 20:25] LABS: ANION GAP 13 (6-22 (CALC)); BILIRUBIN, TOTAL 0.2 mg/dL (0.0-1.4); BUN/CREATININE RATIO 12 (12-20 (CALC)); CREATININE 6.1 mg/dL (0.7-1.3); GFR 10 ML/MIN (>=60 (CALC)); GFR FOR AFR.AMER. 12 ML/MIN (>=60 (CALC)); POTASSIUM 5.9 mmol/l (3.5-5.1)
--- NOTE | 2020-06-24 20:46 | NUR ---
BLOOD CULTURES COMPLETED PT WITHOUT COMPLAINTS-
--- NOTE | 2020-06-24 21:03 | NUR ---
PT HAS NO COMPLAINTS COVID SWAB DONE
--- NOTE | 2020-06-24 22:03 | NUR ---
PT WITHOUT DISTRESS NO COMPLAINTS
--- NOTE | 2020-06-24 22:24 | NUR ---
TELEPHONE REPORT RECEIVED FROM Argelia CÁRDENAS RN IN ED, ROOM 261 PREPARED FOR PT.
--- NOTE | 2020-06-24 22:30 | NUR ---
Admission Note Report Given to: MOISE KEYS Transported by: Wheelchair X Stretcher Transported with: X Nurse Transporter X Patent IV O2 X Overlock Hemmer Location: ICU X [facility]
--- NOTE | 2020-06-24 22:35 | NUR ---
PT ARRIVES TO UNIT AT 2235. ADMITTED TO ROOM 261.
[2020-06-24 22:55] VITALS: BP 111/62
[2020-06-25 03:58] VITALS: BP 110/61
--- NOTE | 2020-06-25 06:30 | NUR ---
nurse was notified of patient blood sugar which was 72.
--- NOTE | 2020-06-25 06:59 | NUR ---
REPORT RECEIVED FROM MOISE KEYS. PT RESTING IN BED, NO S/S OF DISTRESS AT THIS TIME. SAFETY PRECAUTIONS IN PLACE. WILL CONITNUE TO MONITOR.
[2020-06-25 08:01] LABS: ALBUMIN 2.6 g/dL (3.2-5.0); CREATININE 5.5 mg/dL (0.7-1.3); POTASSIUM 5.4 mmol/l (3.5-5.1)
--- NOTE | 2020-06-25 08:01 | NUR ---
PT CONSENTED TO RECEIVE FLU SHOT, PER [place] [facility] PT GOT IT AT [facility] 05/06/2020
[2020-06-25 08:07] VITALS: BP 175/75
--- NOTE | 2020-06-25 08:08 | NUR ---
PT RESTING IN BED, ALERT AND ORIENTED. RESPIRATIONS ARE EVEN AND UNLABOED ON RA. LUNGS SOUND CLEAR. PEDAL PULSES ARE STRONG. PT DENIES ANY PAIN OR DISCOMFORT AT THIS TIME. SAFETY PRECAUTIONS IN PLACE. WILL CONTINUE TO MONITOR.
[2020-06-25 11:35] VITALS: BP 154/71
--- NOTE | 2020-06-25 12:45 | NUR ---
PT AMBULATING ROOM, STATING "I JUST WANTED TO MOVE AROUND, I WAS TIRED OF BEING IN BED" SAFETY PRECAUTIONS IN PLACE. WILL CONTINUE TO MONITOR.
[2020-06-25 16:00] VITALS: BP 136/61
--- NOTE | 2020-06-25 16:05 | NUR ---
PT RESTING IN BED, NO S/S OF DISTRESS AT THIS TIME. SAFEY PRECAUTIONS IN PLACE. WILL CONTINUE TO MONITOR.
[2020-06-25 19:28] VITALS: BP 153/71
--- NOTE | 2020-06-25 20:38 | NUR ---
PT RESTING IN BED, USING HIS CELL PHONE. PT DENIES ANY PAIN OR DISCOMFORT. PT DENIES ANY NEEDS CURRENTLY. PHYSICAL ASSESMENT COMPLETE. PLAN OF CARE REVIEWED WITH PT, PT VERBALIZES UNDERSTANDING AND DENIES QUESTIONS AT THIS TIME. SCHEDULED MEDICATIONS ADMINISTERED, SEE E-MAR. CALL ALFARO WITHIN REACH, AGREES TO CALL PRN.
[2020-06-26] VITALS (7 sets, daily range): BP systolic 104–140; BP diastolic 52–74
--- NOTE | 2020-06-26 00:50 | NUR ---
PT APPEARS TO BE SLEEPING COMFORTABLY, LAYING IN BED WITH EYES CLOSED. NO APPARENT DISTRESS, RESPIRATIONS REGULAR AND UNLABORED. CALL ALFARO REMAINS WITHIN REACH.
--- NOTE | 2020-06-26 05:44 | NUR ---
PT APPEARS TO BE SLEEPING COMFORTABLY, LAYING IN BED WITH EYES CLOSED. NO APPARENT DISTRESS, RESPIRATIONS REGULAR AND UNLABORED. CALL ALFARO REMAINS WITHIN REACH.
--- NOTE | 2020-06-26 07:00 | NUR ---
REPORT RECEIVED FROM MOISE KEYS. PT RESTING IN BED. NO S/S OF DISTRESS AT THIS TIME, SAFETY PRECAUTIONS IN PLACE.
--- NOTE | 2020-06-26 07:48 | NUR ---
PT RESTING IN BED, ALERT AND ORIENTED. RESPIRATIONS ARE EVEN AND UNLABORED ON RA. LUNGS SOUND CLEAR. PEDAL PULSES ARE STRONG. PT DENIES ANY PAIN OR DISCOMFORT AT THIS TIME. SAFETY PRECAUTIONS IN PLACE. WILL CONTINUE TO MONITOR.
[2020-06-26 10:59] LABS: CREATININE 5.4 mg/dL (0.7-1.3)
[2020-06-26 11:03] LABS: ALBUMIN 2.4 g/dL (3.2-5.0); POTASSIUM 4.9 mmol/l (3.5-5.1)
--- NOTE | 2020-06-26 11:50 | NUR ---
PT RESTING IN BED. NO S/S OF DISTRESS AT THIS TIME. SAFETY PRECAUTIONS IN PLACE. WILL CONTINUE TO MONITOR.
--- NOTE | 2020-06-26 13:46 | NUR ---
PT OFF THE FLOOR VIA WC ACCOMPANIED BY STAFF TO ULTRASOUND.
--- NOTE | 2020-06-26 16:39 | NUR ---
PT RESTING IN BED. NO S/S OF DISTRESS AT THIS TIME. SAFETY PRECAUTIONS IN PLACE. WILL CONTINUE TO MONTIOR.
--- NOTE | 2020-06-26 20:01 | NUR ---
PHYSICAL ASSESMENT COMPLETE. PT CURRENTLY DENIES PAIN OR DISCOMFORT. SCHEDULED MEDICATIONS AND PRN MEDICATION ADMINISTERED, SEE E-MAR. PT DENIES ANY NEEDS AT THIS TIME. PLAN OF CARE REVIEWED, PT DENIES QUESTIONS, VERBALIZES UNDERSTANDING. ITEMS WITHIN REACH, BED LOCKED IN LOW POSITION W/ BEDRAILS UP X2. CALL ALFARO WITHIN REACH, AGREES TO CALL PRN.
--- NOTE | 2020-06-27 00:02 | NUR ---
PT LAYING IN BED WITH EYES CLOSED, APPEARS TO BE SLEEPING, APPEARS COMFORTABLE AND IN NO DISTRESS. RESPIRATIONS REGULAR AND UNLABORED. ITEMS REMAIN WITHIN REACH, CALL ALFARO REMAINS WITHIN REACH. BED REMAINS LOCKED AND IN LOW POSITION WITH BEDRAILS UP X2. WILL CONTINUE TO MONITOR.
[2020-06-27 03:00] VITALS: BP 96/54
--- NOTE | 2020-06-27 03:51 | NUR ---
PT RESTING IN BED, NO SIGNS OF DISTRESS NOTED, RESP EVEN AND UNLABORED. PT VOICES NO NEEDS OR COMPLAINTS AT THIS TIME. CALL LIGHT IN REACH, CONTINUE TO MONITOR.
[2020-06-27 05:23] LABS: HEMATOCRIT 25.3 % (39.0-50.0); MEAN CELL VOLUME 89.7 fL CALC (80.0-100.0); MEAN CORPUSCULAR HGB 28.4 pG CALC (26.0-32.0); MEAN CORPUSCULAR HGB CONC 31.6 g/dL CAL (32.0-36.0); RED BLOOD COUNT 2.82 mill/uL (4.70-6.10); RED CELL DISTRI WIDTH 14.2 % (11.5-15.5)
[2020-06-27 05:42] LABS: ALBUMIN 2.5 g/dL (3.2-5.0); POTASSIUM 4.8 mmol/l (3.5-5.1)
[2020-06-27 05:54] LABS: BILIRUBIN, TOTAL 0.1 mg/dL (0.0-1.4); CREATININE 5.4 mg/dL (0.7-1.3); TOTAL PROTEIN 4.8 g/dL (6.3-8.2)
[2020-06-27 07:00] VITALS: BP 133/60
--- NOTE | 2020-06-27 07:00 | NUR ---
REPORT RECEIVED FROM MOISE CAMARA. PT RESTING IN BED. NO S/S OF DISTRESS AT THIS TIME. SAFETY PRECAUTIONS IN PLACE. WILL CONTINUE TO MONITOR.
[2020-06-27 08:33] VITALS: BP 144/72
--- NOTE | 2020-06-27 08:50 | NUR ---
PT RESTING IN BED. RESPIRATIONS ARE EVEN AND UNLABORED ON RA. LUNGS SOUND CLEAR PEDAL PULSES ARE STRONG. PT DENIES ANY PAIN OR DISCOMFORT AT THIS TIME. SAFETY PRECAUTIONS IN PLACE. WILL CONTINUE TO MONITOR.
[2020-06-27 10:44] VITALS: BP 114/55
--- NOTE | 2020-06-27 12:00 | NUR ---
PT RESTING IN BED. NO S/S OF DISTRESS AT THIS TIME. SAFETY PRECAUTIONS IN PLACE. WILL CONTINUE TO MONITOR.
[2020-06-27 15:59] VITALS: BP 132/74
--- NOTE | 2020-06-27 16:34 | NUR ---
PT RITTING ON COUCH, NO S/S OF DISTRESS AT THIS TIME. WILL CONTINUE TO MONITOR.
--- NOTE | 2020-06-27 20:27 | NUR ---
PT RESTING IN BED, NO SIGNS OF DISTRESS NOTED, RESP EVEN AND UNLABORED. PT HAS A CHANNEL MARKETING COORDINATOR COUGH, DISCUSSED POC, PT IS TAJIK SPEAKING ONLY, PREVENTIVE MAINTENANCE COORDINATOR SPEAKS TAJIK. PT ALERT AND ORIENTED X3, NOTED EDEMA TO RUE, ENCOURAGED ELEVATION. IV TO RAC LEAKING, REMOVED, CATHETER INTACT. DISCUSSED NEW IV SITE. PT AGREES. ADMISSION ASSESSMENT COMPLETED, CALL LIGHT IN REACH,CONITNUE TO MONITOR.
--- NOTE | 2020-06-28 | NUR ---
PT AMBULATING BACK TO BED, NO SIGNS OF DISTRESS NOTED, RESP EVEN AND UNLABORED. CALL LIGHT IN REACH,CONTINUE TO MONITOR, PT VOICES NO NEEDS OR COMPLAINTS AT THIS TIME.
--- NOTE | 2020-06-28 04:00 | NUR ---
PT RESTING IN BED, VITALS OBTAINED, PT VOICES NO NEEDS OR COMPLAINTS AT THIS TIME, CALL LIGHT IN REACH,CONTINUE TO MONITOR.
[2020-06-28 04:12] VITALS: BP 133/66
[2020-06-28 06:16] LABS: URINE BILIRUBIN - DIPSTICK NEGATIVE (NEGATIVE); URINE BLOOD DIPSTICK TRACE-INTACT (NEGATIVE); URINE COLOR YELLOW; URINE GLUCOSE - DIPSTICK 250 mg/dL (NEGATIVE); URINE KETONE NEGATIVE (NEGATIVE); URINE LEUK ESTERASE NEGATIVE (NEGATIVE); URINE NITRITE - DIPSTICK NEGATIVE (Negative); URINE PH 5.5 (4.5-8.0); URINE PROTEIN - DIPSTICK >=300 mg/dL (NEG-TRACE); URINE SPECIFIC GRAVITY >=1.030; URINE UROBILINOGEN - DIPSTICK 0.2 E.U./dL (0.2)
[2020-06-28 06:40] LABS: URINE BACTERIA FEW hpf; URINE SQUAMOUS EPITHELIAL CELL FEW EPI/hpf (0-FEW)
[2020-06-28 06:41] LABS: URINE COARSE GRANULAR CAST FEW lpf
--- NOTE | 2020-06-28 08:23 | NUR ---
DR WALDROP AND Patty CAMP AT BEDSIDE DISCUSSING POC
[2020-06-28 08:28] VITALS: BP 148/74
--- NOTE | 2020-06-28 08:28 | NUR ---
PT LAYING IN BED. A&O X3. NO DISTRESS NOTED. PT DENIES ANY PAIN. C/O OF SLIGH OCCASSIONAL POLICY VALUE CALCULATOR COUGH. NO OTHER NEEDS AT THIS TIME. EDEMA NOTED TO BLE. ASSESSMENT COMPLETED. DISCUSSED POC. CALL LIGHT IN REACH. CONTINUE TO MONITOR.
[2020-06-28 09:43] LABS: CREATININE 5.8 mg/dL (0.7-1.3)
[2020-06-28 09:45] LABS: ALBUMIN 2.8 g/dL (3.2-5.0); BILIRUBIN, TOTAL 0.1 mg/dL (0.0-1.4); POTASSIUM 4.6 mmol/l (3.5-5.1); TOTAL PROTEIN 5.1 g/dL (6.3-8.2)
--- NOTE | 2020-06-28 11:43 | NUR ---
PT SITTING ON THE SIDE OF THE BED. NO NEEDS AT THIS TIME. CALL LIGHT IN REACH. CONTINUE TO MONITOR.
[2020-06-28] MEDS ORDERED: PHOSLO667 MG PO (13:38)
[2020-06-28] MEDS ORDERED: SODIUM BICARBI650 MG PO (13:38)
[2020-06-28] MEDS ORDERED: CALCITRIOL0.25 MC1 PO (13:39)
[2020-06-28] MEDS ORDERED: VITAMIN D50000 UNIT PO (13:40)
[2020-06-28] MEDS ORDERED: DOXYCYCL HYC100 MG PO (13:41)
[2020-06-28 15:10] VITALS: BP 131/66
--- NOTE | 2020-06-28 16:07 | NUR ---
PT LAYING IN BED. NO NEEDS AT THIS TIME. CALL LIGHT IN REACH. CONTINUE TO MONITOR.
== END 2020-06-28 19:45 | disposition home or self-care (01) | DRG 682 ==
LOC: ED 17:35 → ED-I 20:50 → ED 21:09 → MS2 21:10
PROVIDERS: Nurse Practitioner Family; ADMIT Internal Medicine; ATTEND Internal Medicine
DX: N17.9 Acute kidney failure, unspecified (principal); J10.00 Influenza due to other identified influenza virus with unspecified type of pneumonia; E87.2 Acidosis; I12.9 Hypertensive chronic kidney disease with stage 1 through stage 4 chronic kidney disease, or unspecified chronic kidney disease; E11.22 Type 2 diabetes mellitus with diabetic chronic kidney disease; N18.4 Chronic kidney disease, stage 4 (severe); N25.81 Secondary hyperparathyroidism of renal origin; E86.0 Dehydration; E87.5 Hyperkalemia; D63.1 Anemia in chronic kidney disease; G25.0 Essential tremor; Z20.828 Contact with and (suspected) exposure to other viral communicable diseases; Z79.84 Long term (current) use of oral hypoglycemic drugs; Z79.899 Other long term (current) drug therapy; Z87.891 Personal history of nicotine dependence

== ENCOUNTER 2020-11-10 18:31 | Emergency (ER) | payer BC ==
[~2020-11-10 18:31] MED LIST changes: +CALCITRIOL0.25 MC1 PO; +FAMOTIDINE20 M1 PO; +HYDRALAZINE50 MG PO; +LOSARTAN POTASS25 MG PO; +PHOSLO667 MG PO; +SODIUM BICARBI650 MG PO; +VITAMIN D50000 UNIT PO
[2020-11-10] MEDS ORDERED: FLOXIN OTIC0.3 % AS (18:47)
[2020-11-10 19:00] VITALS: BP 179/103
[2020-11-10] MEDS ORDERED: SEVELAMER HYDR800 MG PO (19:03)
[2020-11-10] MEDS ORDERED: FAMOTIDINE40 M1 PO (19:04)
[2020-11-10] MEDS ORDERED: FUROSEMIDE20 MG PO (19:04)
[2020-11-10] MEDS ORDERED: ELIQUIS5 MG PO (19:04)
[2020-11-10] MEDS ORDERED: MIDODRINE10 MG PO (19:05)
== END 2020-11-10 19:00 | disposition home or self-care (01) | DRG 154 ==
LOC: ED 18:31
DX: H60.92 Unspecified otitis externa, left ear (principal); N18.6 End stage renal disease; I12.0 Hypertensive chronic kidney disease with stage 5 chronic kidney disease or end stage renal disease; E11.22 Type 2 diabetes mellitus with diabetic chronic kidney disease; Z99.2 Dependence on renal dialysis; Z79.84 Long term (current) use of oral hypoglycemic drugs

== ENCOUNTER 2023-01-14 19:12 | Emergency (ER) | payer OTHER ==
[~2023-01-14] VITALS: Ht 160 cm; Wt 54.0 kg
[~2023-01-14 19:12] MED LIST changes: +ELIQUIS5 MG PO; +FAMOTIDINE40 M1 PO; +FLOXIN OTIC0.3 % AS; +FUROSEMIDE20 MG PO; +MIDODRINE10 MG PO; +SEVELAMER HYDR800 MG PO
[2023-01-14] MEDS ORDERED: SILVADENE1 % EX (20:20)
[2023-01-14] MEDS ORDERED: KEFLEX500 MG PO (20:20)
[2023-01-14 20:30] VITALS: BP 145/75
== END 2023-01-14 20:44 | disposition home or self-care (01) ==
LOC: ED 19:12
DX: T25.231A Burn of second degree of right toe(s) (nail), initial encounter (principal); L03.115 Cellulitis of right lower limb; E11.42 Type 2 diabetes mellitus with diabetic polyneuropathy; I12.9 Hypertensive chronic kidney disease with stage 1 through stage 4 chronic kidney disease, or unspecified chronic kidney disease; E11.22 Type 2 diabetes mellitus with diabetic chronic kidney disease; N18.9 Chronic kidney disease, unspecified; X12.XXXA Contact with other hot fluids, initial encounter; Y93.89 Activity, other specified; Y92.009 Unspecified place in unspecified non-institutional (private) residence as the place of occurrence of the external cause

== ENCOUNTER 2023-08-18 18:51 | Observation (INO) | payer MEDICARE, MEDICAID ==
[2023-08-18] VITALS (20 sets, daily range): BP systolic 113–158; BP diastolic 54–79
[~2023-08-18] VITALS: Ht 160 cm; Wt 60.4 kg
[~2023-08-18 18:51] MED LIST changes: +AMARYL1 MG PO; +CALCITRIOL1 MCG/M1 PO; +EPOGEN2000 UNIT/ IV; +HEPARIN SO5000 UNIT3 IV; +HYDRALAZINE10 MG PO; +KEFLEX500 MG PO; +LASIX40 MG PO; +MIDODRINE5 MG PO; +OMEPRAZOLE10 MG PO; +PEPCID20 MG PO; +RENVELA2.4 GM PO; +SILVADENE1 % EX; +SIMVASTATIN10 MG PO; +VENOFER20 MG/ML IV
[2023-08-18 19:28] LABS: BASO% 0.5 % (0-3); IMMATURE GRANULOCYTES 0.2 % (0.0-5.0); LYMPH% 21.5 % (15-41); MEAN CORPUSCULAR HGB 31.6 pG CALC (26.0-32.0); MEAN CORPUSCULAR HGB CONC 32.4 g/dL CAL (32.0-36.0); MONO% 6.7 % (2-13); NEUT# 4.07 thou/uL (1.82-7.42); NEUT% 66.1 % (42-76); RED BLOOD COUNT 1.87 mill/uL (4.70-6.10); RED CELL DISTRI WIDTH 13.5 % (11.5-15.5)
[2023-08-18 19:31] LABS: HEMATOCRIT 18.2 % (39.0-50.0); HEMOGLOBIN 5.9 g/dl (14.0-18.0); MEAN CELL VOLUME 97.3 fL CALC (80.0-100.0)
[2023-08-18 19:43] LABS: CREATININE 4.3 mg/dL (0.7-1.3); POTASSIUM 4.1 mmol/l (3.5-5.1)
[2023-08-18 19:46] LABS: ALBUMIN 4.4 g/dL (3.2-5.0); BILIRUBIN, TOTAL 0.3 mg/dL (0.2-1.3); TOTAL PROTEIN 7.4 g/dL (6.3-8.2)
[2023-08-18] MEDS ORDERED: SODIUM CHLORIDE 0.9% 500 ML IV ONE (20:05)
[2023-08-18] MEDS ORDERED: MAGNESIUM HYDROXIDE 30 ML UDC PO PRN (20:35)
[2023-08-18] MEDS ORDERED: ACETAMINOPHEN 325 MG/TAB PO PRN (20:35)
[2023-08-18] MEDS ORDERED: FAMOTIDINE 20 MG/TAB PO SCH (21:00)
[2023-08-19] MEDS ORDERED: FAMOTIDINE20 M1 PO (00:31)
[2023-08-19 04:53] VITALS: BP 113/62
[2023-08-19 06:26] LABS: HEMATOCRIT 20.4 % (39.0-50.0); MEAN CELL VOLUME 94.9 fL CALC (80.0-100.0); MEAN CORPUSCULAR HGB 31.6 pG CALC (26.0-32.0); MEAN CORPUSCULAR HGB CONC 33.3 g/dL CAL (32.0-36.0); RED BLOOD COUNT 2.15 mill/uL (4.70-6.10); RED CELL DISTRI WIDTH 14.3 % (11.5-15.5)
[2023-08-19 06:45] LABS: POTASSIUM 4.2 mmol/l (3.5-5.1)
[2023-08-19 06:52] LABS: HEMOGLOBIN 6.8 g/dl (14.0-18.0)
[2023-08-19 07:15] VITALS: BP 112/52
[2023-08-19] MEDS ORDERED: APIXABAN BASE 2.5 MG/TAB TAB PO SCH (09:00)
[2023-08-19 10:06] LABS: URINE BILIRUBIN - DIPSTICK Negative (NEGATIVE); URINE BLOOD DIPSTICK Moderate (NEGATIVE); URINE GLUCOSE - DIPSTICK Negative (NEGATIVE); URINE KETONE Negative (NEGATIVE); URINE NITRITE - DIPSTICK Negative (Negative); URINE PROTEIN - DIPSTICK >=300 mg/dL (NEG-TRACE); URINE UROBILINOGEN - DIPSTICK 0.2 E.U./dL (0.2)
[2023-08-19 10:08] LABS: URINE COLOR Yellow; URINE LEUK ESTERASE Large (NEGATIVE)
[2023-08-19 10:13] LABS: URINE BACTERIA MANY hpf; URINE EPITHELIAL CELLS FEW EPI/hpf (0-FEW); URINE WBC 20-50 WBC/hpf (0-5)
[2023-08-19] MEDS ORDERED: LASIX20 MG PO (12:17)
== END 2023-08-19 14:01 | disposition home or self-care (01) ==
LOC: ED 18:51 → MS2 20:41
PROVIDERS: Family Medicine; ADMIT Student in an Organized Health Care Education/Training Program; ATTEND Student in an Organized Health Care Education/Training Program
PROC: 30233N1 Transfusion of Nonautologous Red Blood Cells into Peripheral Vein, Percutaneous Approach (ICD-10-PCS; principal; 2023-08-18)
DX: I12.0 Hypertensive chronic kidney disease with stage 5 chronic kidney disease or end stage renal disease (principal); E11.22 Type 2 diabetes mellitus with diabetic chronic kidney disease; N18.6 End stage renal disease; D63.1 Anemia in chronic kidney disease; Z99.2 Dependence on renal dialysis; Z79.84 Long term (current) use of oral hypoglycemic drugs; Z87.891 Personal history of nicotine dependence; Z20.822 Contact with and (suspected) exposure to COVID-19
CPT/HCPCS: G0378; P9016

== ENCOUNTER 2023-08-26 11:57 | Emergency (ER) | payer MEDICARE, MEDICAID ==
[~2023-08-26] VITALS: Ht 160 cm; Wt 58.0 kg
[2023-08-26] VITALS (14 sets, daily range): BP systolic 112–184; BP diastolic 49–83
[~2023-08-26 11:57] MED LIST changes: +LASIX20 MG PO
[2023-08-26 12:45] LABS: BASO% 0.6 % (0-3); EOS% 0.8 % (0-8); HEMATOCRIT 21.3 % (39.0-50.0); IMMATURE GRANULOCYTES 0.2 % (0.0-5.0); LYMPH% 24.1 % (15-41); MEAN CELL VOLUME 97.7 fL CALC (80.0-100.0); MEAN CORPUSCULAR HGB 31.2 pG CALC (26.0-32.0); MEAN CORPUSCULAR HGB CONC 31.9 g/dL CAL (32.0-36.0); MONO% 10.1 % (2-13); NEUT# 3.16 thou/uL (1.82-7.42); NEUT% 64.2 % (42-76); RED BLOOD COUNT 2.18 mill/uL (4.70-6.10); RED CELL DISTRI WIDTH 13.3 % (11.5-15.5)
[2023-08-26 12:58] LABS: ALBUMIN 4.4 g/dL (3.2-5.0); BILIRUBIN, TOTAL 0.4 mg/dL (0.2-1.3); POTASSIUM 4.5 mmol/l (3.5-5.1); TOTAL PROTEIN 7.3 g/dL (6.3-8.2)
[2023-08-26 13:11] LABS: HEMOGLOBIN 6.8 g/dl (14.0-18.0)
[2023-08-26] MEDS ORDERED: SODIUM CHLORIDE 0.9% 500 ML IV ONE (14:00)
== END 2023-08-26 16:51 | disposition home or self-care (01) ==
LOC: ED 11:57
PROVIDERS: Nurse Practitioner
PROC: 30233N1 Transfusion of Nonautologous Red Blood Cells into Peripheral Vein, Percutaneous Approach (ICD-10-PCS; principal; 2023-08-26)
DX: I12.0 Hypertensive chronic kidney disease with stage 5 chronic kidney disease or end stage renal disease (principal); E11.22 Type 2 diabetes mellitus with diabetic chronic kidney disease; N18.6 End stage renal disease; D63.1 Anemia in chronic kidney disease; Z99.2 Dependence on renal dialysis; Z79.84 Long term (current) use of oral hypoglycemic drugs
CPT/HCPCS: P9016